=== PATIENT | female | born 1945 | race African-American/Black ===

== ENCOUNTER 2018-12-06 05:53 | Inpatient (IN) ==
--- NOTE | 2018-11-24 17:42 | EKG Report ---
Test Performed on : 11/24/2018 5:09:53 PM Test Reason : PAT Blood Pressure : / mmHG Vent. Rate : 069 BPM Atrial Rate : 069 BPM P-R Int : 146 ms QRS Dur : 074 ms QT Int : 406 ms P-R-T Axes : 032 -26 011 degrees QTc Int : 435 ms Normal sinus rhythm. Minimal voltage criteria for LVH, may be normal variant Cannot rule out Anterior infarct , age undetermined Abnormal ECG No previous ECGs available Confirmed by Hilda FELIZ, Alex Riley ([id number]) on 11/25/2018 5:09:09 PM
[2018-11-24 17:57] LABS: URINE SOURCE CLEAN CATCH
[2018-11-24 18:01] LABS: BASO# 0.03 X1000 (0.0-0.2); BASO% 0.5 % (0.0-0.8); EOS# 0.12 X1000 (0.0-0.7); HEMATOCRIT 41.6 % (37.0-47.0); HEMOGLOBIN 14.1 g/dL (12.0-16.0); LYMPH# 2.39 X1000 (1.2-3.4); LYMPH% 40.6 % (20.5-51.1); MCH 29.7 PG (27-31); MCHC 33.9 g/dL (33-37); MCV 87.8 FL (81-99); MONO% 8.5 % (1.7-9.3); MPV 10.4 FL (7.4-10.4); NEUT# 2.85 X1000 (1.4-6.5); NEUT% 48.4 % (42.2-75.2); PLT 257 X1000 (130-400); RBC 4.74 XMIL (4.2-5.4); RDW 14.3 % (11.5-14.5); WBC 5.89 X1000 (4.8-10.8)
[2018-11-24 18:04] LABS: BILIRUBIN URINE NEGATIVE (NEGATIVE); BLOOD URINE NEGATIVE (NEGATIVE); COLOR YELLOW; GLUCOSE URINE NEGATIVE (NEGATIVE); KETONE URINE NEGATIVE (NEGATIVE); LEUKOCYTES URINE SMALL (NEGATIVE); NITRITE URINE NEGATIVE (NEGATIVE); PH URINE 5.5; PROTEIN URINE NEGATIVE (NEGATIVE); SP GRAVITY URINE 1.019; TURBIDITY URINE CLEAR (CLEAR); UROBILINOGEN URINE 2 mg/dL (NORMAL)
[2018-11-24 18:05] LABS: INR 0.9; PROTIME 12.9 Seconds (11.0-16.0)
[2018-11-24 18:06] LABS: PTT 28.4 Seconds (22.3-41.8); UR EPITHELIAL CELLS >10 /HPF (<10); URINE BACTERIA 1+ /HPF; URINE RBC <10 /HPF (<10); URINE WBC <10 /HPF (<10)
[2018-11-24 18:12] LABS: HEMOGLOBIN A1C 5.7 % (4.8-6.0)
[2018-11-24 18:19] LABS: AGAP 13; ALBUMIN 4.4 g/dL (3.5-5.0); BUN 17 mg/dL (8-22); CALCIUM 9.8 mg/dL (8.8-10.2); CHLORIDE 103 mmol/L (98-107); COSMO 277; CREATININE 0.9 mg/dL (0.5-0.9); ESTIMATED GFR > 60; GLUCOSE 101 mg/dL (70-104); POTASSIUM 3.7 mmol/L (3.5-5.1); SODIUM 138 mmol/L (136-145); TCO2 22 mmol/L (25-35)
[2018-12-06] MEDS ORDERED: PEPCID ONE (06:31)
[2018-12-06] MEDS ORDERED: COLACE ONE (06:31)
[2018-12-06] MEDS ORDERED: REGLAN ONE (06:31)
[2018-12-06] MEDS ORDERED: LYRICA ONE (06:31)
[2018-12-06] MEDS ORDERED: LR 1,000 ML ONE (06:32)
[2018-12-06] MEDS ORDERED: KEFZOL 1 GM/D5W 1 GM/50 ML IVPB ONE (06:32)
[2018-12-06] MEDS ORDERED: CELEBREX ONE (06:32)
[2018-12-06] MEDS ORDERED: DIPRIVAN 1% 500 MG/50 ML BOTTLE ONE (06:49)
[2018-12-06] MEDS ORDERED: EXPAREL 1.3% ONE (07:18)
[2018-12-06] MEDS ORDERED: TORADOL ONE (07:18)
[2018-12-06] MEDS ORDERED: NEOSPORIN G.U. IRRIGANT ONE (07:18)
[2018-12-06] MEDS ORDERED: SODIUM CHLORIDE 0.9% ONE (07:18)
[2018-12-06] MEDS ORDERED: DURAMORPH ONE (07:18)
[2018-12-06] MEDS ORDERED: CYKLOKAPRON 1,000 MG/NS 1,000 MG/100 ML IVPB ONE (07:18)
[2018-12-06] MEDS ORDERED: MARCAINE 0.25% PF ONE (07:18)
[2018-12-06] MEDS ORDERED: VERSED ONE (07:51)
[2018-12-06] MEDS ORDERED: SOLU-CORTEF ONE (08:46)
[2018-12-06] MEDS ORDERED: OFIRMEV 1000 MG/ISOTONIC SOLN 1,000 MG/100 ML BOTTLE ONE (08:46)
[2018-12-06] MEDS ORDERED: EPHEDRINE ONE (08:46)
[2018-12-06] MEDS ORDERED: ZOFRAN ONE (08:46)
[2018-12-06 09:30] LABS: URINE SOURCE CATH
[2018-12-06 09:35] LABS: BILIRUBIN URINE NEGATIVE (NEGATIVE); BLOOD URINE NEGATIVE (NEGATIVE); COLOR YELLOW; GLUCOSE URINE NEGATIVE (NEGATIVE); KETONE URINE NEGATIVE (NEGATIVE); LEUKOCYTES URINE NEGATIVE (NEGATIVE); NITRITE URINE NEGATIVE (NEGATIVE); PROTEIN URINE NEGATIVE (NEGATIVE); SP GRAVITY URINE 1.014; TURBIDITY URINE CLEAR (CLEAR); UROBILINOGEN URINE NORMAL (NORMAL)
[2018-12-06 09:36] LABS: UR EPITHELIAL CELLS <10 /HPF (<10); URINE BACTERIA NEGATIVE /HPF; URINE RBC <10 /HPF (<10); URINE WBC <10 /HPF (<10)
[2018-12-06] MEDS: MORPHINE ONE ×3 (10:28→10:43)
[2018-12-06] MEDS ORDERED: NS 1,000 ML ONE (10:28)
[2018-12-06] MEDS ORDERED: ZOFRAN IV PRN (10:45)
[2018-12-06] MEDS ORDERED: MORPHINE IV PRN ×3 (10:45)
[2018-12-06] MEDS ORDERED: ZOFRAN ODT PO PRN (10:45)
[2018-12-06] MEDS ORDERED: OXY IR PO PRN (10:45)
[2018-12-06] MEDS ORDERED: MILK OF MAGNESIA PO PRN (10:45)
[2018-12-06] MEDS ORDERED: OXY IR ONE (11:04)
--- NOTE | 2018-12-06 12:22 | OPERATIVE NOTE ---
PROCEDURE DATE: 12/06/2018 PREOPERATIVE DIAGNOSIS: Left hip degenerative joint disease. POSTOPERATIVE DIAGNOSIS: Left hip degenerative joint disease. PROCEDURE PERFORMED: Left anterior total hip arthroplasty using [facility] size 7 high offset stem with a neutral neck length 32 mm head, a 50 mm hemispherical shell with a 32 mm inside diameter acetabular liner. ANESTHESIA: Spinal. SURGEON: Temo Edwards MD. FIREFIGHTER TYPE ONE: Mindy Mehta PA-C who was present throughout the case whose assistance was critical for exposure, placement of the implants, and closure. Her assistance was necessary for successful completion of the case. ESTIMATED BLOOD LOSS: Minimal. DRAINS: Hemovac x1. DESCRIPTION OF PROCEDURE: The patient was brought to the operative suite and placed in supine position. After successful administration of spinal anesthesia, patient was placed on the OSI table in the usual position for the left hip. The left hip was then prepped and draped in usual sterile fashion. The leg was then was then prepped and draped in usual sterile fashion. A longitudinal incision was made beginning 3 cm distal and 3 cm lateral to the anterior superior iliac spine, seen distally and slightly laterally 8 cm, dissected sharply through the skin and subcutaneous tissue down to the tensor fascia. The tensor fascia was incised and dissected bluntly down deep to the tensor fascia. The tensor fascia was incised and circumflex vessels electrocauterized exposing the anterior capsule. A T- capsulotomy was performed exposing the femoral neck. Femoral neck cut was made with oscillating saw. Femoral head was removed with power corkscrew. The labrum was resected. Acetabulum serially reamed to 50 to accept a 50 cup. The 50 cup was then driven into place in proper amount inclination and anteversion. Once it was verified to be in good position, 2 cancellous screws were placed at 30 mm superiorly and at 25 mm posterior superiorly. Then, the acetabular cup was locked onto the shell. It was found to be in excellent position. Attention was then directed to the femur. It was externally rotated, extended, adducted, and elevated out of the wound with the hook on the OSI bed. The lateral neck was rongeured. The canal was serially broached to a size 7. A size 7 high offset neutral neck length was trialed and found be excellent fit, and fill of the stem, leg length offset, and stability of the hip. The trial was then removed. The definitive stem was seated on the femur, and then the ceramic head was seated on the Cruz taper and the hip was reduced. It was again found to be in excellent position. The hip was copiously irrigated with normal saline containing irrigant and Vashe irrigation. The anterior capsule was repaired with 0 V-Loc suture. The drain was placed deep to the tensor fascia, and buried around the stem neck exiting distally and laterally. The tensor fascia was closed with 0 V-Loc. Skin edge approximated to a Vicryl closed with 4-0 Monocryl and Prineo. A sterile dressing was applied. The patient tolerated the procedure without complication. At the end of the procedure, all counts were correct x2. The patient was transferred to recovery room in stable condition. cc: Temo Edwards MD [facility]
[2018-12-06] MEDS: NS 1,000 ML IV SCH ×2 (12:33→22:26)
[2018-12-06] MEDS: ULTRAM PO SCH ×3 (13:11→22:30)
[2018-12-06] MEDS: TYLENOL PO SCH ×2 (18:17→22:25)
[2018-12-06] MEDS: KEFZOL 1 GM/D5W 1 GM/50 ML IVPB IV SCH (18:19)
[2018-12-06] MEDS ORDERED: DESYREL PO SCH (21:00)
[2018-12-06] MEDS ORDERED: LIPITOR PO SCH (21:00)
[2018-12-06 21:32] LABS: URINE SOURCE CATH
[2018-12-06 21:35] LABS: BILIRUBIN URINE NEGATIVE (NEGATIVE); BLOOD URINE MODERATE (NEGATIVE); COLOR YELLOW; GLUCOSE URINE 500 mg/dL (NEGATIVE); KETONE URINE NEGATIVE (NEGATIVE); LEUKOCYTES URINE NEGATIVE (NEGATIVE); NITRITE URINE NEGATIVE (NEGATIVE); PH URINE 5.5; PROTEIN URINE TRACE mg/dL (NEGATIVE); SP GRAVITY URINE 1.028; TURBIDITY URINE CLEAR (CLEAR); UROBILINOGEN URINE NORMAL (NORMAL)
[2018-12-06 21:42] LABS: UR EPITHELIAL CELLS <10 /HPF (<10); URINE BACTERIA NEGATIVE /HPF; URINE RBC TNTC /HPF (<10); URINE WBC <10 /HPF (<10)
[2018-12-06 21:46] LABS: URINE YEAST NONE SEEN
[2018-12-06 21:47] LABS: URINE CASTS NONE SEEN; URINE CRYSTALS NONE SEEN; URINE SMALL ROUND CELLS NONE SEEN
[2018-12-06] MEDS: COLACE PO SCH (22:25)
[2018-12-06] MEDS: LYRICA PO SCH (22:25)
[2018-12-06] MEDS: PERIDEX MT SCH (22:26)
[2018-12-07] MEDS: OXY IR PO PRN ×2 (01:08→08:53)
[2018-12-07] MEDS: KEFZOL 1 GM/D5W 1 GM/50 ML IVPB IV SCH (01:08)
[2018-12-07] MEDS: NS 1,000 ML IV SCH (04:13)
[2018-12-07] MEDS ORDERED: XARELTO PO SCH (06:00)
[2018-12-07 06:09] LABS: HEMATOCRIT 30.1 % (37.0-47.0); HEMOGLOBIN 9.9 g/dL (12.0-16.0)
[2018-12-07] MEDS: TYLENOL PO SCH (06:13)
[2018-12-07] MEDS: ULTRAM PO SCH (06:13)
[2018-12-07 06:36] LABS: AGAP 11; BUN 15 mg/dL (8-22); CALCIUM 8.4 mg/dL (8.8-10.2); CHLORIDE 105 mmol/L (98-107); COSMO 278; CREATININE 0.9 mg/dL (0.5-0.9); ESTIMATED GFR > 60; GLUCOSE 128 mg/dL (70-104); POTASSIUM 4.1 mmol/L (3.5-5.1); SODIUM 138 mmol/L (136-145); TCO2 22 mmol/L (25-35)
[2018-12-07] MEDS: COLACE PO SCH (08:51)
[2018-12-07] MEDS: PERIDEX MT SCH (08:52)
[2018-12-07] MEDS: LYRICA PO SCH (08:52)
[2018-12-07] MEDS ORDERED: HYDROCHLOROTHIAZIDE PO SCH ×2 (09:00)
[2018-12-07] MEDS ORDERED: CARDIZEM CD PO SCH (09:00)
[2018-12-07] MEDS ORDERED: CELEBREX PO SCH (09:00)
[2018-12-07] MEDS ORDERED: PEPCID PO SCH (09:00)
[2018-12-07] MEDS ORDERED: [UNRECOGNIZED DRUG - OTHER] PO SCH (09:00)
[2018-12-07] MEDS ORDERED: VALSARTAN PO SCH (09:00)
[2018-12-07] MEDS ORDERED: DIOVAN PO SCH (09:00)
[2018-12-07] MEDS ORDERED: DECADRON IV ONE (09:00)
[2018-12-07] MEDS ORDERED: TAPAZOLE PO SCH (09:00)
[2018-12-07 11:18] VITALS: BP 148/67
--- NOTE | 2018-12-08 02:55 | DISCHARGE SUMMARY ---
ADMISSION DATE: 12/06/2018 DISCHARGE DATE: 12/07/2018 DISCHARGE DIAGNOSIS: Left hip degenerative joint disease, status post left total hip arthroplasty. DISCHARGE MEDICATIONS: See discharge medication list. DISPOSITION: The patient is discharged home with home health. DISCHARGE INSTRUCTIONS: Given instructions for total hip arthroplasty protocol and instructed to return to see Dr. Edwards next . HOSPITAL COURSE: On the day of admission, the patient underwent a left total hip arthroplasty. Her postoperative course was unremarkable. At discharge, she was afebrile and tolerating a regular diet. At discharge, her hemoglobin was 9.9 and her hematocrit was 30.1. She has had 100 mL of drainage from her Hemovac drain in the last 8 hours, which we have discontinued. Her left hip dressing is clean, dry, and intact. Her left calf is soft. Her left leg is grossly neurovascularly intact. She is discharged home, after working with physical therapy, in stable condition with instructions to follow up as described above. Dictated by BRAD Cheng for Temo Edwards MD cc: BRAD Cheng MD
== END 2018-12-07 14:11 | disposition home health service (06) | DRG 470 ==
LOC: SURHOLD 05:53 → 4N 07:46
PROVIDERS: ADMIT Orthopaedic Surgery; ATTEND Orthopaedic Surgery
CPT/HCPCS: 76000; 80048; 81001; 82040; 83036; 85014; 85018; 85025; 85610; 85730; 86850; 86900; 86901; 88304; 88311; 94761; 94799; 97110; 97162; 97530; A9270; C9290; J0131; J0690; J1720; J1885; J2250; J2270; J2274; J2275; J2405; J7030; J7120; Q9974; S0020